=== PATIENT | male | born 1995 | race Caucasian/White ===

== ENCOUNTER 2022-04-30 13:45 | Inpatient (IN) | payer BC ==
[~2022-04-30] VITALS: Ht 170.2 cm; Wt 391.5 kg
[2022-04-30] MEDS ORDERED: CLON-595 PO (14:06)
[2022-04-30] MEDS ORDERED: CARI-493 PO (14:06)
[2022-04-30 16:10] LABS: BASOPHILS % (AUTO) 1.3 % (0.0-2.0); EOSINOPHILS % (AUTO) 4.6 % (1.0-6.0); HEMATOCRIT 42.9 % (41-53); HEMOGLOBIN 14.3 g/dL (13.5-17.5); LYMPHOCYTES # (AUTO) 2.1 K/uL (1.0-4.8); LYMPHOCYTES % (AUTO) 29.1 % (22.0-44.0); MEAN CORPUSCULAR HEMOGLOBIN 31.5 pg (26.0-34.0); MEAN CORPUSCULAR HGB CONC 33.4 G/dL (31.0-37.0); MEAN CORPUSCULAR VOLUME 95 fL (80-100); MONOCYTES # (AUTO) 0.6 K/uL (0.1-1.0); MONOCYTES % (AUTO) 8.2 % (2.0-9.0); NEUTROPHILS % (AUTO) 56.8 % (40.0-70.0); PLATELET COUNT (AUTO) 257 K/uL (150-450); RED BLOOD CELL COUNT(AUTO) 4.54 MIL/uL (4.50-5.90); RED CELL DISTRIBUTION WIDTH 14.5 % (11.5-14.5)
[2022-04-30] MEDS ORDERED: LORazepam 2 MG/ML VIAL IVP PRN (16:15)
[2022-04-30] MEDS ORDERED: CefTRIAXone 1 GM/DEXTROSE 50 ML IV ONE (16:15)
[2022-04-30 16:19] LABS: ANION GAP 10 mmol/L (8-16); CALCIUM, TOTAL 9.2 mg/dL (8.8-10.5); CARBON DIOXIDE 27 mmol/L (22-29); CHLORIDE 101 mmol/L (98-107); CREATININE 0.89 mg/dL (0.60-1.30); GLUCOSE,RANDOM 91 mg/dL (70-110); POTASSIUM 4.1 mmol/L (3.5-5.1); SODIUM SERUM 138 mmol/L (136-145); UREA NITROGEN, BLOOD 11 mg/dL (7-18)
[2022-04-30 16:19] LABS: AMPHET/METH SCREEN,URINE NEGATIVE (NEGATIVE); BARBITURATE SCREEN, URINE NEGATIVE (NEGATIVE); BENZODIAZEPINES SCREEN,URINE NEGATIVE (NEGATIVE); CANNABINOID SCREEN,URINE NEGATIVE (NEGATIVE); COCAINE SCREEN,URINE NEGATIVE (NEGATIVE); METHADONE SCREEN, URINE NEGATIVE (NEGATIVE); OPIATE SCREEN,URINE NEGATIVE (NEGATIVE)
[2022-04-30 16:20] LABS: PHENCYCLIDINE SCREEN,URINE NEGATIVE (NEGATIVE)
[2022-04-30 16:20] LABS: GLOMERULAR FILTR. RATE CALC > 60 mL/min (>60)
[2022-04-30 16:26] LABS: ALANINE AMINOTRANSFERASE 246 U/L (12-78); ALBUMIN 4.3 g/dL (3.4-5.0); ALKALINE PHOSPHATASE 161 U/L (46-116); ASPARTATE AMINOTRANSFERASE 40 U/L (15-37); BILIRUBIN,TOTAL 0.2 mg/dL (0.1-1.0); TOTAL PROTEIN, SERUM 7.5 g/dL (6.4-8.2)
[2022-04-30] MEDS ORDERED: LORazepam 2 MG/ML VIAL IM ONE (17:30)
[2022-04-30] MEDS ORDERED: DiphenhydrAMINE HCL 50 MG/ML VIAL IM ONE (17:30)
[2022-04-30] MEDS ORDERED: HALOPERIDOL LACTATE 5 MG/ML VIAL IM ONE (17:30)
[2022-04-30] MEDS ORDERED: DIAZEPAM 5 MG/ML 2 ML SYRINGE IM ONE (19:00)
[2022-04-30] MEDS ORDERED: ZIPRASIDONE MESYLATE 20 MG/VIAL IM ONE (19:00)
[2022-04-30 19:04] LABS: COVID AG,FIA SOURCE NASAL SWAB
[2022-04-30 22:40] VITALS: BP 128/72
[2022-05-01] MEDS ORDERED: INFLUENZA VIRUS VACCINE QVS 2022-23 (6MO+)/PF 60 MCG/0.5 ML SYRINGE IM. ONE (00:45)
[2022-05-01] MEDS ORDERED: ALBUTEROL SULFATE HFA 90 MCG/PUFF 8 GM INHALER IH PRN (09:15)
[2022-05-01] MEDS ORDERED: GuaiFENesin/D-METHORPHAN [SUGAR-FREE] 200-20MG/10 ML SYRUP UDCUP PO PRN (09:15)
[2022-05-01] MEDS ORDERED: LOPERAMIDE HCL 2 MG CAPSULE PO PRN (09:15)
[2022-05-01] MEDS ORDERED: PETROLATUM,WHITE 28 GM JELLY TP PRN (09:15)
[2022-05-01] MEDS ORDERED: MAG HYDROX/AL HYDROX/SIMETH ES 30 ML SUSPENSION UDCUP PO PRN (09:15)
[2022-05-01] MEDS ORDERED: DOCUSATE SODIUM 100 MG CAPSULE PO PRN (09:15)
[2022-05-01] MEDS ORDERED: CloNIDine HCL 0.1 MG TABLET PO PRN (09:15)
[2022-05-01] MEDS ORDERED: ONDANSETRON HCL 4 MG TABLET PO PRN (09:15)
[2022-05-01] MEDS ORDERED: ACETAMINOPHEN 325 MG TABLET PO PRN (09:15)
[2022-05-01] MEDS ORDERED: IBUPROFEN 400 MG TABLET PO PRN (09:15)
[2022-05-01] MEDS ORDERED: MAGNESIUM HYDROXIDE SUSPENSION 30 ML UDCUP PO PRN (09:15)
[2022-05-01 09:30] VITALS: BP 110/63
[2022-05-01] MEDS: LORazepam 2 MG TABLET PO PRN ×2 (09:50→16:18)
[2022-05-01] MEDS: HALOPERIDOL 5 MG TABLET PO PRN ×2 (10:03→16:18)
[2022-05-01 17:17] VITALS: BP 127/77
[2022-05-02] MEDS: ZOLPIDEM TARTRATE 10 MG TABLET PO PRN ×2 (02:52→22:14)
[2022-05-02] MEDS: LORazepam 2 MG TABLET PO PRN ×4 (02:52→20:24)
[2022-05-02 08:00] VITALS: BP 150/90
[2022-05-02] MEDS: HALOPERIDOL 5 MG TABLET PO PRN ×2 (08:48→14:43)
[2022-05-02 16:00] VITALS: BP 106/57
[2022-05-02] MEDS ORDERED: CloZAPine 25 MG TABLET PO SCH (21:00)
[2022-05-03] MEDS: LORazepam 2 MG TABLET PO PRN ×3 (09:32→19:07)
[2022-05-03] MEDS: HALOPERIDOL 5 MG TABLET PO PRN ×3 (09:32→19:07)
[2022-05-03] MEDS: NICOTINE 14 MG/24 HOUR PATCH TD PRN (10:19)
[2022-05-03 16:13] VITALS: BP 146/78
[2022-05-03] MEDS ORDERED: CloZAPine 25 MG TABLET PO SCH (21:00)
[2022-05-04] MEDS: LORazepam 2 MG TABLET PO PRN ×4 (03:48→20:52)
[2022-05-04] MEDS: HALOPERIDOL 5 MG TABLET PO PRN ×3 (03:48→13:11)
[2022-05-04] MEDS: NICOTINE 14 MG/24 HOUR PATCH TD PRN (07:51)
[2022-05-04 08:15] VITALS: BP 153/77
[2022-05-04] MEDS ORDERED: CYCLOBENZAPRINE HCL 10 MG TABLET PO PRN (13:15)
[2022-05-04 14:31] VITALS: BP 106/62
[2022-05-04 15:31] VITALS: BP 102/64
[2022-05-04 16:04] VITALS: BP 106/62
[2022-05-04] MEDS: CloZAPine 100 MG TABLET PO SCH (21:29)
[2022-05-05] MEDS: ZOLPIDEM TARTRATE 10 MG TABLET PO PRN ×2 (00:27→21:58)
[2022-05-05] MEDS: HALOPERIDOL 5 MG TABLET PO PRN ×4 (03:08→20:56)
[2022-05-05 09:30] VITALS: BP 128/82
[2022-05-05] MEDS: LORazepam 2 MG TABLET PO PRN ×3 (09:34→20:56)
[2022-05-05] MEDS: NICOTINE 14 MG/24 HOUR PATCH TD PRN (09:34)
[2022-05-05 16:00] VITALS: BP 150/94
[2022-05-05] MEDS: CloZAPine 100 MG TABLET PO SCH (20:55)
[2022-05-06] MEDS: LORazepam 2 MG TABLET PO PRN ×2 (07:57→12:01)
[2022-05-06] MEDS: NICOTINE 14 MG/24 HOUR PATCH TD PRN (07:57)
[2022-05-06 08:13] VITALS: BP 139/80
[2022-05-06 09:18] LABS: COVID AG,FIA SOURCE NASAL SWAB
[2022-05-06] MEDS: HALOPERIDOL 5 MG TABLET PO PRN (11:43)
[2022-05-06] MEDS ORDERED: CLOZ100T11 PO (13:48)
[2022-05-06] MEDS ORDERED: PALI234D IM (13:48)
[2022-05-11] MEDS ORDERED: PALIPERIDONE PALMITATE 234 MG/1.5 ML SYRINGE IM SCH (09:00)
== END 2022-05-06 13:20 | disposition home or self-care (01) | DRG 885 ==
LOC: EMS 13:58 → 3EC 21:02
PROVIDERS: ADMIT Psychiatry & Neurology Psychiatry; ATTEND Psychiatry & Neurology Psychiatry
DX: F20.0 Paranoid schizophrenia (principal); F10.10 Alcohol abuse, uncomplicated; G47.00 Insomnia, unspecified; G89.29 Other chronic pain; I10 Essential (primary) hypertension; F32.A Depression, unspecified; M54.9 Dorsalgia, unspecified; Z20.822 Contact with and (suspected) exposure to COVID-19; Z79.899 Other long term (current) drug therapy
CPT/HCPCS: 80053; 85025; 87081; 90686; 99291; G0480; J1200; J1630; J2060; J3486